=== PATIENT | male | born 1975 | race Caucasian/White ===

== ENCOUNTER 2021-09-22 17:36 | Emergency (ER) | payer OTHER ==
[~2021-09-22 17:36] MED LIST: HYDROXYZINE HCL25 MG PO
== END 2021-09-22 20:02 | disposition home or self-care (01) ==
LOC: ER1 17:36
DX: S86.111A Strain of other muscle(s) and tendon(s) of posterior muscle group at lower leg level, right leg, initial encounter (principal); X50.9XXA Other and unspecified overexertion or strenuous movements or postures, initial encounter; Y92.009 Unspecified place in unspecified non-institutional (private) residence as the place of occurrence of the external cause
CPT/HCPCS: 73562; 73590; 99283